=== PATIENT | male | born 1940 | race Caucasian/White ===

== ENCOUNTER 2019-11-02 13:05 | Emergency (ER) | payer MEDICARE ==
[~2019-11-02 13:05] MED LIST: Iopamidol-370 76% 500 ML 1 ML ONE
[2019-11-02] MEDS ORDERED: Adacel (T-DAP) 0.5 ML SYRINGE ONE (14:00)
[2019-11-02 14:03] LABS: Bacteria/HPF None Seen HPF (None Seen); Bilirubin Negative (Negative); Blood, Urine 2+ (Negative); Clarity Clear (Clear); Glucose, Urine (Dipstick) Normal (Negative); Leukocyte Negative Leu/uL (Negative); Nitrite Negative (Negative); Protein, Urine (Dipstick) Greater than 600 mg/dL (Neg-Trace); Squamous Epithelial None Seen HPF (0-3); Urobilinogen Normal mg/dL (Less than 2); WBC/HPF 0-3 HPF (0-3)
[2019-11-02 14:20] LABS: Hemoglobin 12.1 g/dL (14.0-18.0); Mean Corpuscular HGB CONC 34.6 g/dL (32.0-36.0); Mean Corpuscular Hemoglobin 36.4 pg (27.0-31.0); RBC Distribution Width 13.6 % (11.5-14.5); Red Blood Cell (RBC) Count 3.34 mill/uL (4.70-6.10); White Blood Cell (WBC) Count 3.7 thou/uL (4.8-10.8)
[2019-11-02 14:25] LABS: INR-International Normal Ratio 1.1; PTT 29.4 sec (22.9-36.1); Prothrombin Time 14.6 sec (12.0-14.7)
--- NOTE | 2019-11-02 14:38 | RAD ---
LEFT HIP TWO VIEWS: History: Injury to hip. FINDINGS: Bones appear demineralized. There is an intertrochanteric fracture left hip with coxa vera deformity. Marked atherosclerotic change is seen. IMPRESSION: Intertrochanteric fracture of the left hip. POS: [facility]
--- NOTE | 2019-11-02 14:40 | RAD ---
PORTABLE CHEST: History: Patient reportedly fell three days ago. He has been on the floor ever since. Tripped over a dog. Comparison: None FINDINGS: Heart size is enlarged with internal defibrillator device present. Chronic appearing lung changes are seen. Pleural changes along the lateral thoracic wall of the left chest may be chronic in nature. I do not see any definite rib fractures. There is a distal right clavicle fracture which may be old. IMPRESSION: 1. Probable chronic lung change. 2. Distal right clavicular fracture also probably old. POS: [facility]
[2019-11-02 14:42] LABS: ALT (SGPT) 15 U/L (8-55); AST (SGOT) 30 U/L (5-34); Albumin 3.5 g/dL (3.4-4.8); Alkaline Phosphatase 85 U/L (40-110); Anion Gap 17 mmol/L (10-20); BUN (Urea Nitrogen) 33 mg/dL (8.4-25.7); Bilirubin, Total 1.2 mg/dL (0.2-1.2); CK (CPK) 775 U/L (30-200); Calc. Creatinine Clearance 0 mL/min (70-130); Calcium 8.3 mg/dL (7.8-10.44); Carbon Dioxide 22 mmol/L (23-31); Chloride 105 mmol/L (98-107); Estimated GFR-MDRD 51; Globulin 3.1 g/dL (2.4-3.5); Glucose 143 mg/dL (83-110); Lipase 6 U/L (8-78); Magnesium 1.7 mg/dL (1.6-2.6); Potassium 4.7 mmol/L (3.5-5.1); Protein, Total 6.6 g/dL (5.8-8.1); Sodium 139 mmol/L (136-145)
[2019-11-02 14:43] LABS: Band 20 % (5-11); Eosinophils 1 % (0-10); Lymphocytes 11 % (21-51); MDiff Complete? YES; Macrocytosis SLIGHT = 6-15 cells (100X) (0-5/hpf); Mean Platelet Volume 9.8 fL (7.4-10.4); Metamyelocyte 1 % (0-0); Monocytes 32 % (0-10); Myelocyte 2 % (0-0); Neutrophil 14 % (42-75); Platelet Count 67 thou/uL (130-400); Platelet Morphology Comment Appears Decreased; Polychromasia SLIGHT = 2-3 cells (100X) (0-2/hpf); Reactive Lymphocytes 19 % (0-10)
--- NOTE | 2019-11-02 14:46 | CT ---
CT BRAIN PERFORMED WITHOUT CONTRAST ENHANCEMENT: History: Patient fell and has been lying on the ground for three days. FINDINGS: There is generalized ventricular and sulcal prominence. There are no signs of intracerebral hemorrhag e or extraaxial fluid collections. Mastoid air cells are clear. There is moderate mucosal change with in the left maxillary sinus and some minimal changes in the right. The left sphenoid air cells are co mpletely opacified. IMPRESSION: 1. No acute intracranial abnormalities. 2. Sinus disease. POS: [facility]
--- NOTE | 2019-11-02 14:49 | CT ---
CT OF CERVICAL SPINE PERFORMED WITHOUT CONTRAST ENHANCEMENT: History: Fall with neck pain. FINDINGS: The bones are demineralized. 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 The T2 vertebral body shows some slight cupping to the superior endplate which appears to b e more chronic in nature. Moderate bilateral foraminal narrowing at C2-3. There is also mild foramina l narrowing at C3-4, more pronounced bilateral foraminal stenosis, greater on the left at C4-5 with m ild degree of canal stenosis. There is also fairly pronounced left sided foraminal narrowing at C6-7 and moderate right foraminal narrowing. There is also moderate left foraminal stenosis at C7-T1. Ther e is no evidence for fracture. There are extensive carotid bulb calcifications bilaterally, also some vertebral calcifications noted. Lung apices are clear of infiltrates. IMPRESSION: No CT evidence of fracture of the cervical spine. POS: [facility]
[2019-11-02 15:03] LABS: CKMB 6.5 ng/mL (0-6.6)
[2019-11-02] MEDS ORDERED: Nitroglycerin 2% Ointment 1 INCH/1 GM Packet ONE (15:40)
[2019-11-02] MEDS ORDERED: Furosemide 20 MG/2 ML VIAL ONE (15:40)
[2019-11-02] MEDS ORDERED: Morphine 2 MG/ML SYRINGE ONE (15:48)
--- NOTE | 2019-11-02 19:08 | CT ---
CT ANGIO CHEST PERFORMED WITH INTRAVENOUS CONTRAST ENHANCEMENT WITH 3D RECONSTRUCTIONS: History: Patient is status post multiple syncopal episodes. Comparison: None FINDINGS: Emphysematous lung changes are seen. There is a slightly spiculated density within the right upper lo be. It does not have a definite prominent nodular component and may just represent scar. There is chr onic appearing pleural and parenchymal changes in the lung bases. There is calcification along the pl eura. There are some focal areas of thickening to the parenchymal changes in the left base. The main pulmonary artery is mildly dilated. There is a large area of thrombus which appears to be ad herent to the wall of the medial aspect of the left main pulmonary artery. This appears to have inter nal calcification. It is possible that this is some internal contrast. I do not have a precontrast ex am. This measures approximately 5 cm in length but also appears to extend to somewhat circumferential ly involve the left lower lobe pulmonary artery. There are no other signs for pulmonary embolis and I would tend to favor that this is chronic in nature, although an acute on chronic element is not excl uded. Prominent breast tissue for a male is noted. There is reflux into the IVC and hepatic veins. Filling defects are probably just related to uneven mixing and poor ventricular function. IMPRESSION: 1. Large area of adherent appearing thrombus along the left main pulmonary artery extending into the lower lobe pulmonary artery. It appears to have some calcification associated with it and there are n o other findings of pulmonary emboli. 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 I do not have any previous exams for comparison. 2. Pleural and parenchymal thickening in both lungs. Pleural based calcifications also seen. This henriquez ses the possibility of previous asbestosis exposure. 3. Emphysematous lung change. 4. Slightly spiculated density seen in the right upper lobe. This does not have a significant soft ti ssue component and may just represent scar. A short-term [address] for assessment of this is recommended. POS: [facility]
== END 2019-11-02 17:57 | disposition short-term general hospital (02) ==
LOC: ERS 13:05
DX: T79.6XXA Traumatic ischemia of muscle, initial encounter (principal); S72.142A Displaced intertrochanteric fracture of left femur, initial encounter for closed fracture; I11.0 Hypertensive heart disease with heart failure; I50.9 Heart failure, unspecified; R79.89 Other specified abnormal findings of blood chemistry; D61.818 Other pancytopenia; I25.10 Atherosclerotic heart disease of native coronary artery without angina pectoris; E78.5 Hyperlipidemia, unspecified; E78.00 Pure hypercholesterolemia, unspecified; Z79.891 Long term (current) use of opiate analgesic; Z79.899 Other long term (current) drug therapy; Z79.82 Long term (current) use of aspirin; W01.0XXA Fall on same level from slipping, tripping and stumbling without subsequent striking against object, initial encounter
CPT/HCPCS: 36415; 70450; 71045; 71275; 72125; 80053; 81003; 81015; 82550; 82553; 83605; 83690; 83735; 83880; 84484; 85025; 85610; 85730; 90471; 90715; 93005; 96361; 96374; 96375; J1940; J2270; Q9967